=== PATIENT | male | born 1965 | race Caucasian/White ===

== ENCOUNTER 2018-12-06 14:06 | Emergency (ER) | payer OTHER ==
--- NOTE | 2018-12-06 14:56 | RAD ---
XR Ankle Rt 3 View STANDARD History: Sprain with pain Comparison: None. Findings: Likely an old distal fibular fracture. 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 Small osseous spur at the dorsal aspect of the talar neck. No acute fracture or malalignment. Impression: Chronic findings. No acute fracture or malalignment.
[2018-12-06] MEDS ORDERED: Adacel (T-DAP) 0.5 ML SYRINGE ONE (15:09)
== END 2018-12-06 15:30 | disposition home or self-care (01) ==
LOC: SCSER 14:06
DX: S93.401A Sprain of unspecified ligament of right ankle, initial encounter (principal); I10 Essential (primary) hypertension; F41.9 Anxiety disorder, unspecified; Z79.899 Other long term (current) drug therapy; W01.0XXA Fall on same level from slipping, tripping and stumbling without subsequent striking against object, initial encounter
CPT/HCPCS: 90471; 90715